=== PATIENT | female | born 1955 ===

== ENCOUNTER 2018-09-05 10:29 | Emergency (ER) | payer OTHER ==
[~2018-09-05] VITALS: Ht 152.4 cm; Wt 84.4 kg
[2018-09-05] MEDS ORDERED: FOSAMAX70 MG (10:52)
[2018-09-05] MEDS ORDERED: GLUCOPHAGE XR750 MG (10:52)
[2018-09-05] MEDS ORDERED: SYNTHROID88 MCG (10:52)
[2018-09-05] MEDS ORDERED: ZOCOR20 MG (10:52)
== END 2018-09-05 17:00 | disposition home or self-care (01) ==
LOC: ER 10:29
DX: K57.92 Diverticulitis of intestine, part unspecified, without perforation or abscess without bleeding (principal)